=== PATIENT | female | born 1960 | race Asian ===

== ENCOUNTER 2016-04-08 14:44 | Emergency (ER) | payer OTHER ==
[~2016-04-08] VITALS: Ht 162.6 cm; Wt 54.4 kg
--- NOTE | 2016-04-08 14:44 | NUR ---
Patient to ER bed 8 to gown for evaluation. Side rails up. Report given to VIPIN CUEVAS.
[2016-04-08 14:51] VITALS: BP 87/32; PULSE 105; RESP 16; TEMP 98.2; O2SAT 95
--- NOTE | 2016-04-08 14:55 | NUR ---
Pt report received from MASON Quiroz. Pt c/o generalized weakness x 1 week. During gown placement, noticed foul odor. Pt turned to reveal black wounds to bilat buttocks, strong rotten smelling odor. No drainage noted. Redness noted around wound extending to hips and groin. Pt states that she lives with relatives who attend to her care. Pt denies c/o pain.
--- NOTE | 2016-04-08 15:10 | NUR ---
Dr. Patterson at bedside to assess pt.
[2016-04-08] MEDS ORDERED: VANCOMYCIN HCL 1,000 MG in NS 250 ML IV ONE (15:15)
[2016-04-08] MEDS ORDERED: NACL 0.9% 1,000 ML IV ONE ×3 (15:15→18:15)
[2016-04-08] MEDS ORDERED: PIPERACILLIN/TAZO 3.375 GM in NS 50 ML IV ONE (15:15)
[2016-04-08] MEDS ORDERED: CLINDAMYCIN 900 MG in D5W 100 ML IV ONE (15:15)
[2016-04-08 15:23] LABS: HEMATOCRIT 27.4 % (36-48); HEMOGLOBIN 8.8 g/dL (12.0-16.0); MEAN CORPUSCULAR HEMOGLOBIN 24 pg (27-31); MEAN CORPUSCULAR HGB CONC 32 % (32-36); MEAN CORPUSCULAR VOLUME 73 fL (79.0-98.0); PLATELET COUNT (AUTO) 386 K/uL (130-430); RED BLOOD CELL COUNT(AUTO) 3.74 MIL/uL (4.2-6.2); RED CELL DISTRIBUTION WIDTH 16.2 % (9.0-15.0)
--- NOTE | 2016-04-08 15:30 | NUR ---
ASSUMED PT. CARE, PT. IN BED DR. SARGENT AT BEDSIDE EXPLAINING THE PLAN OF CARE TO PT.
--- NOTE | 2016-04-08 15:32 | NUR ---
# 18 gauge angiocath placed to DON. Use of asceptic technique. Opsite placed over site. Blood return noted. Blood for lab drawn from site. Flushed with 10 cc of normal saline. No evidence of infiltration noted. Patient tolerated well.
[2016-04-08 15:38] LABS: CALCIUM 8.1 mg/dL (8.4-11.0); CREATININE 1.68 mg/dL (0.55-1.30); POTASSIUM 4.6 mmol/L (3.5-5.1)
[2016-04-08 15:42] LABS: ALBUMIN 1.6 g/dL (3.4-4.8); ATYPICAL LYMPHOCYTES % 0 % (0-0); BAND % (MANUAL) 5 % (0-6); BASOPHILS % (MANUAL) 0 % (0-2); EOSINOPHILS % (MANUAL) 0 % (0-7); LYMPHOCYTES % (MANUAL) 2 % (20-46); MONOCYTES % (MANUAL) 1 % (0-11); TOTAL BILIRUBIN 0.3 mg/dL (0.0-1.0); TOTAL PROTEIN, SERUM 6.2 g/dL (6.4-8.3)
--- NOTE | 2016-04-08 16:00 | NUR ---
EJ TUBE PLACEMENT BY DR. SARGENT AT BEDSIDE, PT. TOLERATED WELL
[2016-04-08] MEDS ORDERED: VANCOMYCIN HCL 1000 MG/VIAL IV ONE (16:03)
[2016-04-08] MEDS ORDERED: PIPERACILLIN/TAZOBACTAM 3.375 GM/VIAL (ZOSYN) IV ONE (16:03)
--- NOTE | 2016-04-08 16:10 | NUR ---
Chester burr in ED - 04/10/[address] at [address] Patterson at bedside to assess pt.
--- NOTE | 2016-04-08 16:10 | NUR ---
2 L OF NS FLOWING PER MD ORDERS, PT. BP 86/32 PT. STATES THAT THE NUMBER IS CLOSE TO HER NORMAL BP NUMBER, ANTIBIOTICS RUNNING, PT. TOLERATING WELL, NO FEVER, STATES THAT SHE IS FEELING WELL ALREADY
[2016-04-08 16:38] LABS: BILIRUBIN,URINE 1+ (NEGATIVE); BLOOD, URINE NEGATIVE (NEGATIVE); CLARITY/URINE CLOUDY (CLEAR); COLOR,URINE YELLOW (YELLOW); GLUCOSE,URINE NEGATIVE (NEGATIVE); KETONES,URINE TRACE (NEGATIVE); LEUKOCYTE ESTERASE ,URINE NEGATIVE (NEGATIVE); NITRITE, URINE NEGATIVE (NEGATIVE); PH,URINE 5.5 (5.0-8.0); PROTEIN URINE TRACE (NEGATIVE); UROBILINOGEN,URINE 0.2 (0.2-1.0)
--- NOTE | 2016-04-08 17:15 | NUR ---
CLANDOMYCIN NOT AVAILABLE IN [facility], CALLED PHARMACY SPOKE TO BRIA, PHARMACY TO PROVIDE WITH CLANDOMYCIN Addendum: 04/10/16 at 1126 by [facility]
[2016-04-08 17:28] LABS: BACTERIA,URINE MODERATE /HPF (None Seen); RBC,URINE 0-3 /HPF (0-3); WBC,URINE 0-3 /HPF (0-3)
[2016-04-08 17:29] LABS: MUCUS,URINE 1+ /LPF (None Seen)
--- NOTE | 2016-04-08 17:30 | NUR ---
PT. TO BE TRANSFERED TO OR WITH SURGEON DR. VELA, SURGEON AT BEDSIDE EXAMINING THE PLAN OF CARE TO PT. PT. VERBALIZED UNDERSTANDING
--- NOTE | 2016-04-08 18:00 | NUR ---
PT. TRANSFERED TO OR WITH [address] VELA AT BEDSIDE, PER DR. VELA THE PT. WILL BE TRANSFERED TO I RECOMMENDED BY PT. PCP, PT. WILL BE TRANSFERRED BACK TO ER FOR TRANFER, PT. NOTIFIED, DR. SARGENT NOTIFIED
--- NOTE | 2016-04-08 18:10 | NUR ---
BP 83/37 PT. IN BED RESTING, IV FLUIDS RUNNING, SIDERAILS UP, TEMP 99.0, PT. VERBALIZED COMFORT
[2016-04-08 19:37] VITALS: BP 78/34; PULSE 112; RESP 14; O2SAT 98
--- NOTE | 2016-04-08 19:37 | NUR ---
Patient to be transferred to [facility] [place] ER. Is being transferred due to higher level of care per primary physician request. Receiving facility has accepting physician and available space. ER physician has signed transfer form. Patient or responsible libertarian has agreed to transfer and signed form. Patient belongings inventoried and will be sent with patient. Copy of nursing notes, lab reports, EKG, Physicians Orders and X-rays to be sent with patient. Report called to MASON Garcia at receiving facility. Receiving physician is Dr. Yoder. [facility] ambulance service has been called for transfer. ETA is 1 hour.
== END 2016-04-08 19:37 | disposition short-term general hospital (02) ==
LOC: SED 14:44
DX: A41.9 Sepsis, unspecified organism (principal); M72.6 Necrotizing fasciitis
CPT/HCPCS: 36415; 36569; 71010; 72192; 80053; 81000; 83605; 85007; 85027; 87040; 87086; 87186; 96361; 96365; 96366; 96367; 96368; 99291; J2543; J3370; J3490; J7050; J7060